=== PATIENT | male | born 1955 | race Caucasian/White ===

== ENCOUNTER → 2019-11-15 | Outpatient (CLI) | payer BC ==
[~2019-11-15] MED LIST: HOLD METFORMIN - RECEIVED CONTRAST 20 ML VIAL IV SCH; IOHEXOL 350 MG/ML 100 ML (OMNIPAQUE 350) VIAL IV ONE; NS 100 ML (IVPB) BAG IV ONE
--- NOTE | 2019-11-15 12:06 | Diagnostic Imaging Report ---
PROCEDURE: CT abdomen and pelvis with contrast. TECHNIQUE: Multiple contiguous axial images were obtained through the abdomen and pelvis after administration of intravenous contrast. Auto Exposure Controls were utilized during the CT exam to meet ALARA standards for radiation dose reduction. INDICATION: Knot at the belt line on the left side of the abdomen. COMPARISON: None FINDINGS: Lung bases are clear. The heart is normal in size. There is mild pericardial fluid without significant effusion. The liver demonstrates no focal lesions. Multiple small subcentimeter calcified stones are seen dependently in the gallbladder. The spleen demonstrates no focal lesions. The pancreas is normal. The adrenal glands are normal. The kidneys are normal. No hydronephrosis or renal masses are seen. The bowel loops are nondistended without obstruction. The appendix appears normal. No free fluid is seen. There is marked edema in the subcutaneous fat of the left abdomen and left pelvis. A large masslike density is seen in the left gluteal region posterior to the left iliac wing, measuring up to 6.4 x 8.5 cm on axial imaging. There is erosion at the posterior aspect of the left iliac crest. This appears to be confluent with a 2nd masslike lesion involving the left quadratus lumborum and left posterior abdominal musculature, measuring up to 6.4 x 5.6 cm (image 54 series 2). There is central low density with peripheral enhancement. In the presacral region, another mass is seen, which measures 7.1 x 6.6 cm, and causes erosive changes of the sacrum/coccyx (image 91 series 2). This causes mass effect on the rectum posteriorly. IMPRESSION: 1. Large masses seen in the soft tissues of the left posterior abdomen as well as the presacral region, with erosion of the adjacent bone. Findings are primarily concerning for necrotic malignancy, and tissue sampling is indicated. Multiple abscesses would be in the differential as well. 2. Cholelithiasis. Dictated by: Dictated on workstation # [id number]
== END ==
LOC: RAD 07:19
PROVIDERS: ATTEND Nurse Practitioner Family
DX: R19.00 Intra-abdominal and pelvic swelling, mass and lump, unspecified site (principal); K80.20 Calculus of gallbladder without cholecystitis without obstruction
CPT/HCPCS: 74177